=== PATIENT | male | born 1975 | race Caucasian/White ===

== ENCOUNTER → 2024-10-03 | Day surgery (SDC) | payer BC ==
[~2024-10-03] MED LIST: Sodium Bicarbonate 2.5 MEQ/5 ML SDV ONE
[2024-10-03 12:11] LABS: CSF RBC Count - Manual 0 /cu.mm (None Seen); CSF Source CSF; CSF WBC/NonHematics Count-Man 6 /cu.mm (0-5); Clarity Clear (Clear); Tube # 3
[2024-10-03 12:25] LABS: CSF, Protein 143.2 mg/dL (15-40)
== END ==
LOC: RAD 09:03
PROVIDERS: ATTEND Neurological Surgery
PROC: 009U3ZX Drainage of Spinal Canal, Percutaneous Approach, Diagnostic (ICD-10-PCS; principal; 2024-10-03)
DX: G91.9 Hydrocephalus, unspecified (principal); Z90.49 Acquired absence of other specified parts of digestive tract; Z91.013 Allergy to seafood; Z79.899 Other long term (current) drug therapy
CPT/HCPCS: 62270; 82945; 84157; 89051